=== PATIENT | female | born 1975 | race Caucasian/White ===

== ENCOUNTER 2022-03-03 21:36 | Emergency (ER) | payer BC ==
[~2022-03-03] VITALS: Ht 170 cm; Wt 75.0 kg
[2022-03-03 21:37] VITALS: BP 117/80
[2022-03-03] MEDS ORDERED: KETOROLAC 30 MG/ML VIAL IM ONE (21:45)
[2022-03-03] MEDS ORDERED: CLT4KB PO (21:51)
--- NOTE | 2022-03-03 21:51 | ED Abdominal Pain ---
General Chief Complaint: Abdominal/GI Problems Stated Complaint: CONSTIPATION Source of Information: Patient Exam Limitations: No Limitations History of Present Illness Date Seen by Provider: Mar 03, 2022 Time Seen by Provider: 21:40 Initial Comments 47-year-old female presents to the emergency department. Ambulance for abdominal pain. Symptoms present for the last 3 days. She states she only had very small bowel movements last 3 days and fears she may have a fecal impaction. 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 She has tried MiraLAX, Dulcolax suppositories and an enema without any relief. She states milk of magnesia usually works for her, unfort unately there is a [place] shortage of milk magnesium. She denies any fevers or chills. She has nausea without any vomiting. Abdominal pain is cramping low without radiation. No aggravating or alleviating factors. No urinary symptoms. No bloody stools. Allergies and Home Medications Allergies Coded Allergies: No Known Drug Allergies (Unverified , 03/03/22) Patient Home Medication List Home Medication List Reviewed: Yes Ketorolac Tromethamine (Ketorolac Tromethamine) 10 Mg Tablet, 10 MG PO TID Prescribed by: DALE CHAMBERLAIN MD on 03/03/222152 Peg/Electrolytes (Golytely Solution) 236-22.74G Soln, 4,000 ML PO ONCE Prescribed by: DALE CHAMBERLAIN MD on 03/03/222150 Review of Systems Review of Systems Constitutional: no symptoms reported EENTM: No Symptoms Reported Respiratory: No Symptoms Reported Cardiovascular: No Symptoms Reported Gastrointestinal: Abdominal Pain Genitourinary: No Symptoms Reported Musculoskeletal: no symptoms reported Skin: no symptoms reported Psychiatric/Neurological: No Symptoms Reported Endocrine: No Symptoms Reported Hematologic/Lymphatic: No Symptoms Reported Past [id number]-[id number] Hx Patient Social History Tobacco Use?: No Use of E-Cig and/or Vaping dev: No Substance use?: No Alcohol Use?: No Family Medical History Reviewed Nursing Family Hx No Pertinent Family Hx Physical Exam Vital Signs Vital Signs - First Documented 03/03/22 21:37 Temp 36.5 Pulse 76 Resp 16 B/P (MAP) 117/80 (92) Capillary Refill : Height/Weight/BMI Height: '" Weight: lbs. oz. kg; BMI Method: General Appearance: WD/WN, no apparent distress HEENT: normal ENT inspection, pharynx normal Neck: non-tender, supple, normal inspection Respiratory: chest non-tender, lungs clear, normal breath sounds, no respiratory distress, no accessory muscle use Cardiovascular: regular rate, rhythm, no edema, no gallop, no JVD, no murmur Gastrointestinal: normal bowel sounds, soft, no organomegaly, tenderness (Diffuse tenderness palpation bilateral lower abdomen. Voluntary guarding without any rebound tenderness. No mass organomegaly. No skin changes. No abdominal distention.) Extremities: normal range of motion, non-tender, normal inspection, no pedal edema, no calf tenderness, normal capillary refill Neurologic/Psychiatric: alert, oriented x 3 Skin: normal color, warm/dry Lymphatic: no adenopathy Progress/Results/Core Measures Results/Orders My Orders Orders - DALE CHAMBERLAIN DO Ketorolac Injection (Toradol Injection) (03/03/22 21:45) Vital Signs/I&O 03/03/22 21:37 Temp 36.5 Pulse 76 Resp 16 B/P (MAP) 117/80 (92) Departure Communication (Admissions) Stable. Her abdomen is soft without any evidence for obstruction, nonsurgical abdominal exam. No indication for imaging at this time she is having symptoms once in the past. No indication for disimpaction at this time we will go ahead and try GoLytely as an outpatient. She is discharged in stable condition. Impression Primary Impression: Fecal impaction Disposition: 01 HOME, SELF-CARE Condition: Stable Departure-Patient Inst. Patient Instructions: Fecal Impaction (DC) Add. Discharge Instructions: Use the GoLytely tomorrow. Toradol has been provided as well for pain control. Return to the emergency department for any severe concerns. Follow-up with your primary doctor for any nonemergent needs All discharge instructions reviewed with patient and/or family. Voiced understanding. Scripts Ketorolac Tromethamine (Ketorolac Tromethamine) 10 Mg Tablet 10 MG PO TID for Pain for 3 Days, #9 TAB Prov: DALE CHAMBERLAIN DO 03/03/22 Peg/Electrolytes (Golytely Solution) 236-22.74G Soln 4000 ML PO ONCE for 1 Day, #1 EA Prov: DALE CHAMBERLAIN DO 03/03/22 DALE CHAMBERLAIN DO Mar 03, 2022 21:51
[2022-03-03] MEDS ORDERED: KETO10TA PO (21:53)
== END 2022-03-03 22:20 | disposition home or self-care (01) ==
LOC: ER FS 21:38
DX: K56.41 Fecal impaction (principal)
CPT/HCPCS: 99284